=== PATIENT | male | born 1950 | race Caucasian/White ===

== ENCOUNTER 2020-01-01 14:05 | Emergency (ER) | payer MEDICARE, BC ==
[~2020-01-01] VITALS: Ht 175.3 cm; Wt 90.0 kg
[~2020-01-01 14:05] MED LIST: ALLO100T PO; ALPR-624 PO; AMLO-363 PO; ASPI-1009 PO; CYCL-394 PO; EZET1TAB35 PO; FENO145T38 PO; LEVO50TA67 PO; MELO-83 PO; METO100T7 PO; MULT-1085 PO; VITA1CAP62 PO
[2020-01-01 14:25] VITALS: BP 134/83
[2020-01-01] MEDS ORDERED: orphenadrine citrate 60mg/2ml inj. IM ONE (16:15)
[2020-01-01] MEDS ORDERED: ketorolac tromethamine 15mg/ml inj. IM ONE (16:15)
[2020-01-01] MEDS ORDERED: ORPH100T2 PO (17:14)
== END 2020-01-01 17:30 | disposition home or self-care (01) ==
LOC: ER 14:05
DX: G57.01 Lesion of sciatic nerve, right lower limb (principal); I10 Essential (primary) hypertension; Z98.890 Other specified postprocedural states; Z79.82 Long term (current) use of aspirin; Z79.899 Other long term (current) drug therapy; W01.190A Fall on same level from slipping, tripping and stumbling with subsequent striking against furniture, initial encounter; Y93.B3 Activity, free weights; Y92.39 Other specified sports and athletic area as the place of occurrence of the external cause; Y99.8 Other external cause status
CPT/HCPCS: 72192; 96372; 99284; J1885; J2360

== ENCOUNTER 2020-09-13 10:17 | Day surgery (SDC) | payer MEDICARE, BC ==
[2020-09-08 10:59] LABS: EOSINOPHILS # (AUTO) 0.2 X10'3 (0-0.9); PLATELET COUNT 232 X10'3 (140-440)
[2020-09-08 11:01] LABS: BASOPHILS # (AUTO) 0.1 X10'3 (0-0.2); BASOPHILS % (AUTO) 1.3 % (0-1); EOSINOPHILS % (AUTO) 2.7 % (0-6); LYMPHOCYTES # (AUTO) 2.4 X10'3 (1.1-4.8); LYMPHOCYTES % (AUTO) 42.8 % (21-51); MEAN CORPUSCULAR HEMOGLOBIN 32.2 PG (27.0-31.0); MEAN CORPUSCULAR HGB CONC 34.1 g/dL (33.0-36.5); MEAN CORPUSCULAR VOLUME 94.4 FL (78-98); MEAN PLATELET VOLUME 9.4 FL (7.4-10.4); MONOCYTES # (AUTO) 0.4 X10'3 (0-0.9); MONOCYTES % (AUTO) 7.8 % (2-12); NEUTROPHILS # (AUTO) 2.6 X10'3 (1.8-7.7); NEUTROPHILS % (AUTO) 45.4 % (42-75); RED BLOOD COUNT 4.66 X10'6 (4.70-6.10); RED CELL DISTRIBUTION WIDTH 13.3 % (11.5-14.5); WHITE BLOOD COUNT 5.6 X10'3 (4.5-11.0)
[2020-09-08 11:05] LABS: ALANINE AMINOTRANSFERASE 24 U/L (12-78); ALBUMIN 3.8 G/DL (3.4-5.0); ALBUMIN/GLOBULIN RATIO 1.1 (1.1-1.5); ALKALINE PHOSPHATASE 34 IU/L (46-116); ANION GAP 12 (8-16); ASPARTATE AMINO TRANSFERASE 23 U/L (10-37); BILIRUBIN,TOTAL 0.5 MG/DL (0.1-1.0); BLOOD UREA NITROGEN 31 MG/DL (7-18); BUN/CREATININE RATIO 18.8 (5.4-32.0); CALCIUM 9.8 MG/DL (8.5-10.1); CHLORIDE 100 MMOL/L (99-107); CREATININE 1.65 MG/DL (0.60-1.10); GLUCOSE 169 MG/DL (70-104); POTASSIUM 3.3 MMOL/L (3.5-5.1); SODIUM 139 MMOL/L (135-145); TOTAL CARBON DIOXIDE 26.9 MMOL/L (24-32); TOTAL PROTEIN 7.2 G/DL (6.4-8.2); eGFR 41 ML/MIN
[2020-09-13] VITALS (12 sets, daily range): BP systolic 124–148; BP diastolic 53–89
[~2020-09-13] VITALS: Ht 172.7 cm; Wt 82.7 kg
[~2020-09-13 10:17] MED LIST changes: +ORPH100T2 PO
[2020-09-13] MEDS ORDERED: diphenhydrAMINE 25mg capsule PO PRN (10:40)
[2020-09-13] MEDS ORDERED: nitroGLYCERIN 0.4mg SUBLingual tab SL PRN ×2 (10:40→13:05)
[2020-09-13] MEDS ORDERED: normal saline 1,000 ML IV SCH (10:40)
[2020-09-13] MEDS ORDERED: LORazepam 0.5 MG tablet PO PRN (10:40)
[2020-09-13] MEDS ORDERED: OMEG1CAP46 PO (10:48)
[2020-09-13] MEDS ORDERED: SODIUM CITRATE (10:48)
[2020-09-13 11:27] LABS: PARTIAL THROMBOPLASTIN TIME 28 SECONDS (22-32)
[2020-09-13] MEDS ORDERED: midazolam 1 mg/ML 2ml injection ONE (11:29)
[2020-09-13] MEDS ORDERED: iohexol 350MG/ML 100ml bottle IV ONE (11:30)
[2020-09-13] MEDS ORDERED: fentaNYL/PF 50MCG/1 ML 2ML syringe ONE (11:30)
[2020-09-13] MEDS ORDERED: LIDOcaine 1% (10mg/ml)w/preservative injection 20ml MDV ONE (11:30)
[2020-09-13] MEDS ORDERED: iohexol 350 MG/ML 50ML vial IV ONE ×2 (11:30→12:21)
[2020-09-13] MEDS ORDERED: HYDROcodone/acetaminophen 10/325mg tab PO PRN (13:05)
[2020-09-13] MEDS ORDERED: normal saline 1000ml 1,000 ML IV SCH (13:05)
[2020-09-13] MEDS ORDERED: ondansetron/PF 4mg/2ml inj IV PRN (13:05)
[2020-09-13] MEDS ORDERED: HYDROcodone/acetaminophen 5mg/325mg tablet PO PRN (13:05)
[2020-09-13] MEDS ORDERED: proCHLORperazine 10 MG/2 ml inj IV PRN (13:05)
[2020-09-13] MEDS ORDERED: OXAZEpam 15mg capsule PO PRN (13:05)
== END 2020-09-13 18:55 | disposition home or self-care (01) ==
LOC: SSTAY O 10:17
PROVIDERS: ATTEND Internal Medicine Cardiovascular Disease
DX: R94.39 Abnormal result of other cardiovascular function study (principal); I25.810 Atherosclerosis of coronary artery bypass graft(s) without angina pectoris; I25.82 Chronic total occlusion of coronary artery; M47.9 Spondylosis, unspecified; M19.90 Unspecified osteoarthritis, unspecified site; I12.9 Hypertensive chronic kidney disease with stage 1 through stage 4 chronic kidney disease, or unspecified chronic kidney disease; N18.4 Chronic kidney disease, stage 4 (severe); E78.5 Hyperlipidemia, unspecified; Z87.891 Personal history of nicotine dependence; Z95.1 Presence of aortocoronary bypass graft; Z79.899 Other long term (current) drug therapy
CPT/HCPCS: 36415; 71046; 80053; 85025; 85610; 85730; 93005; 93459; 99152; 99153; C1760; C1769; J1644; J2001; J2250; J3010; J7030; Q0163; Q9967; 93458; A4620; A6258